=== PATIENT | male | born 1990 | race Caucasian/White ===

== ENCOUNTER → 2017-03-13 | Day surgery (SDC) | payer BC ==
[~2017-03-13] MED LIST: IV RINGERS,LACTATED 1000ML 1,000 ML IV SCH; PROPOFOL 20 ML IV ONE; RANI150T2 PO
[2017-03-13 07:52] VITALS: BP 118/68
--- NOTE | 2017-03-14 12:34 | PATHOLOGY ---
PATHOLOGY REPORT * * * * * * * * FINAL DIAGNOSIS: A. Duodenal biopsies: - No significant pathologic abnormalities. B. Esophageal biopsies, distal esophagus: - Esophagitis with eosinophils. See comment. COMMENT: Sections of the duodenal biopsies reveal segments of duodenal and small intestine mucosa. Where best oriented, the mucosal villi appear normal and show no sprue-like changes or significant inflammatory changes. Sections of the distal esophageal biopsies reveal segments of hyperplastic squamous esophageal mucosa. There are intraepithelial eosinophils. The differential diagnosis of esophagitis with eosinophils includes reflux esophagitis, "pill esophagitis," and eosinophilic esophagitis. While most areas show a few intraepithelial eosinophils, there are focal areas which show slightly in access of 20 intraepithelial eosinophils per high power field. The latter finding is suggestive of eosinophilic esophagitis. Correlate clinically. (JPM:mgr; 03/14/2017) REPORT ELECTRONICALLY SIGNED BY: Jefe Pace M.D. DATE/TIME: 03/14/2017 11:10 * * * * * * * * GROSS PATHOLOGY: A. Received in formalin labeled "Juma Roque, duodenal biopsy, r/o celiac," are multiple segments of hackett soft tissue measuring from 0.1 up to 0.4 cm in maximum dimension. The specimen is submitted entirely in cassette A1. B. Received in formalin labeled "distal esophagus," are multiple segments of hackett soft tissue measuring from 0.1 up to 0.4 cm in maximum dimension. The specimen is submitted entirely in cassette B1. ([facility]; 03/13/17) INITIAL CPT CODE(S): A; 94527 B; 04865 Professional services performed by [facility] at [address] [address] Technical services performed by [facility] at [address] [place] [address], [facility] [address] [address]. SPECIMEN(S) RECEIVED: A.Duodenal biopsy, r/o celiac B.Distal esophagus biopsy CLINICAL HISTORY: GERD PATIENT: JUMA ROQUE /AGE: 512/21/1990 (Age: 26) PATIENT #: [id number] ALT CASE #: SPECIMEN COLLECTION DATE: 03/13/2017 SPECIMEN RECEIVED DATE: 03/13/2017 [facility] - [address] [place] [address] - PHONE: [phone] * * * END OF REPORT * * *
== END | disposition home or self-care (01) ==
LOC: ENDOS 06:16
PROVIDERS: ATTEND Internal Medicine Gastroenterology
DX: K21.0 Gastro-esophageal reflux disease with esophagitis (principal); K31.89 Other diseases of stomach and duodenum; F41.9 Anxiety disorder, unspecified; F32.9 Major depressive disorder, single episode, unspecified
CPT/HCPCS: 43239; 88305; J2704

== ENCOUNTER 2017-04-04 06:46 | Day surgery (SDC) | payer BC ==
[~2017-04-04] VITALS: Ht 182.9 cm; Wt 107.5 kg
[~2017-04-04 06:46] MED LIST changes: -IV RINGERS,LACTATED 1000ML 1,000 ML IV SCH; -PROPOFOL 20 ML IV ONE
[2017-04-04] MEDS ORDERED: HYDROmorphone 2 MG/ML VIAL IV PRN (07:00)
[2017-04-04] MEDS ORDERED: ONDANSETRON PF 4 MG/2 ML VIAL. IV PRN (07:00)
[2017-04-04] MEDS ORDERED: fentaNYL PF VIAL 100 MCG/2 ML VIAL IV PRN (07:00)
[2017-04-04] MEDS ORDERED: PROCHLORPERAZINE 10 MG/2 ML VIAL. IV PRN (07:00)
[2017-04-04] MEDS ORDERED: LIDOCAINE 1% 1 ML SYRINGE. ID PRN (07:00)
[2017-04-04] MEDS ORDERED: IV RINGERS,LACTATED 1000ML 1,000 ML IV SCH (07:00)
[2017-04-04] MEDS ORDERED: SURGICEL HEMOSTAT 4X8 EACH. ONE (07:07)
[2017-04-04] MEDS ORDERED: IOHEXOL 300 MG/ML 50 ML VIAL. ONE (07:07)
[2017-04-04] MEDS ORDERED: BUPIVACAINE-EPI 0.25%-1:200000 MPF 30 ML VIAL. ONE (07:07)
[2017-04-04] MEDS ORDERED: ROCURONIUM 100 MG/10 ML VIAL. ONE (07:39)
[2017-04-04] MEDS ORDERED: LIDOCAINE 2% PF Vial for OR 5 ML VIAL. ONE (07:39)
[2017-04-04] MEDS ORDERED: DEXAMETHASONE SOD PHOS 20 MG/5 ML VIAL. ONE (07:39)
[2017-04-04] MEDS ORDERED: PROPOFOL 20 ML IV ONE ×2 (07:39→08:23)
[2017-04-04] MEDS ORDERED: ONDANSETRON PF 4 MG/2 ML VIAL. ONE (07:39)
[2017-04-04] MEDS ORDERED: MIDAZOLAM HCL/PF 2 MG/2 ML VIAL. ONE (07:39)
[2017-04-04] MEDS ORDERED: fentaNYL PF VIAL 250 MCG/5 ML VIAL ONE (07:39)
[2017-04-04] MEDS ORDERED: NEOSTIGMINE 10 MG/10 ML VIAL. ONE (08:23)
[2017-04-04] MEDS ORDERED: GLYCOPYRROLATE 1 MG/5 ML VIAL. ONE (08:24)
--- NOTE | 2017-04-04 08:39 | PDOC4 ---
Operative Note Operative Note Date: 04/04/2017 Preoperative diagnosis: Biliary dyskinesia Postoperative diagnosis: Same Procedure: Laparoscopic cholecystectomy Surgeon: Chalino Specimen: Gallbladder Dictation: Patient is a 26-year-old male with complaints of right upper quadrant abdominal pain and postprandial nausea with vomiting. HIDA scan showed borderline ejection fraction with recurrent symptoms. Procedure of laparoscopic cholecystectomy was explained to the patient in detail was benefits were also discussed including bleeding infection injury to intra-abdominal contents possibly necessitating further or open operations. He should seemed understanding gave both verbal and written consent to have the procedure performed. The patient was taken to the operating room placed in the supine position his abdomen was prepped and draped in the usual sterile fashion using ChloraPrep. An area at the umbilicus was injected with quarter percent Marcaine incision was made with 11 blade scalpel and a varies needle was placed within the abdomen creating a pneumoperitoneum. This was complete a 11 mm port was placed in a fibromata camera was placed within the abdomen the abdomen was inspected showed no other abnormalities. At this time 35 mm ports were placed under direct visualization one in the epigastrium 2 in the right upper quadrant the dome of the gallbladder was grasped retracted cephalad the infundibulum of the gallbladder's grasped retracted laterally exposing the triangle. Adherent tissues the triangle are taken down bluntly dissection exposing the cystic duct and cystic artery both were doubly clipped and transected the gallbladder was taken off the liver with hook left cautery placed within an Endo Catch bag and removed from the umbilicus the right upper quadrant was irrigated and suctioned dry hemostasis deemed to be appropriate and the pneumoperitoneum was reduced. All ports were removed the fascial defect at the umbilicus closed figure-of- eight 0 Vicryl suture and the skin was approximated all port sites 4 subcuticular Monocryl Mastisol Steri-Strips and Band-Aids were applied as dressings. Patient was awakened and extubated in the operating room taken to recovery in stable condition all sponge, instrument and needle counts were listed as correct. Estimated blood loss 10 mL NICOLAS HUNT MD Apr 04, 2017 08:39
--- NOTE | 2017-04-04 08:40 | DISCH ---
DISCHARGE INSTRUCTIONS Condition on Discharge Condition on Discharge: Stable Activity After Discharge Activity Instructions for Disc: Avoid exertion Other activity instructions: No lifting >20lbs for 2 weeks Diet after Discharge Diet after Discharge: Low Fat Wound Incision Care Other wound/incision instructi: May shower in 24 hours Contacting the after DC Call your doctor for: If your condition worsens Follow-Up Follow up with: Dr Hunt in 2 weeks NICOLAS HUNT MD Apr 04, 2017 08:40
[2017-04-04] MEDS ORDERED: DESFLURANE 61 TO 120 MINUTES IH ONE (08:46)
[2017-04-04] MEDS: fentaNYL PF VIAL 100 MCG/2 ML VIAL IV PRN ×4 (08:50→09:37)
[2017-04-04] MEDS ORDERED: fentaNYL PF VIAL 100 MCG/2 ML VIAL ONE ×2 (08:50→09:14)
[2017-04-04] MEDS ORDERED: MORPHINE SULFATE 2 MG/ML DISP.SYRIN. ONE (08:54)
[2017-04-04] MEDS ORDERED: PROCHLORPERAZINE 10 MG/2 ML VIAL. ONE (08:54)
[2017-04-04] MEDS ORDERED: OXYC-323 PO (09:00)
[2017-04-04] MEDS: MORPHINE SULFATE 2 MG/ML DISP.SYRIN. IV PRN ×2 (09:07→09:20)
[2017-04-04] MEDS ORDERED: oxyCODONE/APAP 5/325 1 TAB TABLET PO ONE (09:30)
[2017-04-04 10:27] VITALS: BP 126/78
--- NOTE | 2017-04-05 14:30 | PATHOLOGY ---
PATHOLOGY REPORT * * * * * * * * FINAL DIAGNOSIS: Gallbladder, laparoscopic cholecystectomy: - Chronic cholecystitis. COMMENT: There are no calculi identified within the gallbladder lumen or specimen container. There is no evidence of malignancy. (JPM:db; 04/05/2017) REPORT ELECTRONICALLY SIGNED BY: Jefe Pace M.D. DATE/TIME: 04/05/2017 14:29 * * * * * * * * GROSS PATHOLOGY: Received in formalin labeled "Juma Roque, gallbladder and contents," is a 6.8 x 3.4 x 2.8 cm, intact gallbladder with purple oh serosal surfaces. Opening the gallbladder reveals jay brown, velvety mucosa and an average wall thickness of 0.3 cm. Calculi are not present and no masses are noted grossly. Teacher Vocal sections from the body and fundus are submitted along with the proximal margin in cassette A1. (JPM; 04/04/17) INITIAL CPT CODE(S): A; 79839 Professional services performed [place] [facility] [place] [address] Technical services performed by [facility] at [address] [place] [address] [address] [address]. SPECIMEN(S) RECEIVED: A.Gallbladder and its contents CLINICAL HISTORY: Biliary dyskinesia PATIENT: JUMA ROQUE /AGE: 512/21/1990 (Age: 26) PATIENT #: [id number] ALT CASE #: SPECIMEN COLLECTION DATE: 04/04/2017 SPECIMEN RECEIVED DATE: 04/04/2017 [facility] - [address] [place] [address] - PHONE: [phone] * * * END OF REPORT * * *
== END 2017-04-04 11:08 | disposition home or self-care (01) ==
LOC: SURG 06:46
PROVIDERS: ATTEND Surgery
DX: K82.8 Other specified diseases of gallbladder (principal); E66.9 Obesity, unspecified; Z68.25 Body mass index [BMI] 25.0-25.9, adult; K21.9 Gastro-esophageal reflux disease without esophagitis; F41.9 Anxiety disorder, unspecified; F32.9 Major depressive disorder, single episode, unspecified; Z72.89 Other problems related to lifestyle; Z87.39 Personal history of other diseases of the musculoskeletal system and connective tissue; Z72.0 Tobacco use
CPT/HCPCS: 47562; J0690; J0780; J1100; J2250; J2270; J2405; J2704; J2710; J3010; J3490; J7030; Q9967; J2001